=== PATIENT | female | born 2000 | race Caucasian/White ===

== ENCOUNTER 2021-01-30 23:54 | Emergency (ER) | payer OTHER, MEDICAID ==
[~2021-01-30] VITALS: Ht 170.2 cm; Wt 97.5 kg
[2021-01-31] MEDS ORDERED: PRENATAL PO (00:06)
[2021-01-31 01:05] VITALS: BP 142/84
== END 2021-01-31 01:08 | disposition left against medical advice (07) ==
LOC: M.ERS 23:54
DX: O26.892 Other specified pregnancy related conditions, second trimester (principal); Z53.21 Procedure and treatment not carried out due to patient leaving prior to being seen by health care provider; Z3A.20 20 weeks gestation of pregnancy